=== PATIENT | female | born 1955 | race Caucasian/White ===

== ENCOUNTER → 2019-12-01 13:20 | Outpatient (CLI) | payer OTHER, SELFPAY ==
[2019-12-01 14:13] LABS: D Dimer 205 ng/mL (<230)
== END ==
PROVIDERS: PCP Internal Medicine; Referring Provider Internal Medicine; Visit Provider Internal Medicine
DX: R06.02 Shortness of breath (principal); Z82.49 Family history of ischemic heart disease and other diseases of the circulatory system
CPT/HCPCS: 36415; 85379

== ENCOUNTER → 2019-12-17 12:43 | Outpatient (CLI) | payer OTHER, SELFPAY ==
[2019-12-17 14:10] LABS: NT-proBNP (BNP-Adult 18+) 58 pg/mL (<125)
== END ==
PROVIDERS: PCP Internal Medicine; Referring Provider Internal Medicine; Visit Provider Internal Medicine
DX: I10 Essential (primary) hypertension (principal)
CPT/HCPCS: 36415; 83880

== ENCOUNTER → 2020-07-26 14:42 | Outpatient (ROUT) | payer OTHER, SELFPAY ==
[2020-07-26 15:11] LABS: Alanine Aminotransferase 24 IU/L (<35); Albumin 4.2 g/dL (3.5-5.0); Albumin Globulin Ratio 1.4 (1.0-2.8); Alkaline Phosphatase 83 U/L (38-126); Aspartate Aminotransferase 32 IU/L (14-36); BUN Creatinine Ratio 29.6 (6-22); Bilirubin Total 1.2 mg/dL (0.2-1.3); Blood Urea Nitrogen 16 mg/dL (7-17); Calcium 9.9 mg/dL (8.4-10.2); Carbon Dioxide 28 mmol/L (22-32); Chloride 104 mmol/L (98-107); Cholesterol 168 mg/dL (140-199); Estimated Glomerular Filt Rate > 60.0 mL/min (>60); Globulin 2.9 g/dL (1.7-4.1); Glucose 118 mg/dL (80-110); HDL Cholesterol 69 mg/dL (40-60); HEMOLYSIS < 15 (0-50); Hemoglobin A1C% w Est Avg Glu 5.3 % (4.0-6.0); LDL Cholesterol Calculated 75 mg/dL (<100); Potassium 4.8 mmol/L (3.4-5.1); Sodium 138 mmol/L (137-145); Total Protein 7.1 g/dL (6.3-8.2); Triglycerides 119 mg/dL (35-150)
[2020-07-26 15:42] LABS: TSH w/ Reflex to FT4 0.64 uIU/mL (0.47-4.68)
== END ==
PROVIDERS: PCP Internal Medicine
DX: R73.01 Impaired fasting glucose (principal); E78.00 Pure hypercholesterolemia, unspecified; I10 Essential (primary) hypertension; K76.0 Fatty (change of) liver, not elsewhere classified; E03.9 Hypothyroidism, unspecified
CPT/HCPCS: 80053; 80061; 83036; 84443

== ENCOUNTER → 2020-09-29 10:30 | Outpatient (CLI) | payer OTHER, SELFPAY | PROVIDERS: PCP Internal Medicine; Referring Provider Internal Medicine; Visit Provider Internal Medicine | DX: M85.88 Other specified disorders of bone density and structure, other site (principal); Z78.0 Asymptomatic menopausal state; E06.3 Autoimmune thyroiditis; Z82.62 Family history of osteoporosis | CPT/HCPCS: 77080 ==

== ENCOUNTER → 2023-11-13 14:20 | Outpatient (CLI) | payer MEDICARE, SELFPAY ==
--- NOTE | 2023-11-13 15:00 | DI.CT.S_ITS ---
PROCEDURE: CT CHEST WO CON INDICATIONS: Eval pulmonary nodules. F/u ct chest from [facility]. TECHNIQUE: Noncontrast 5 mm thick sections acquired from the pulmonary apices to the posterior costophrenic angles. 1 mm lung window, 5 mm thick coronal and sagittal and 7 mm axial MIP reformats were then acquired. For radiation dose reduction, the following was used: automated exposure control, adjustment of mA and/or kV according to patient size. COMPARISON: Outside Film, CT, CT ANGIOGRAM CARDIAC PULMONARY VEIN MAPPING, 02/07/2022, 12:00. [facility], CT, CT CHEST WITHOUT CONTRAST, 08/22/2023, 15:31. FINDINGS: Image quality: Diagnostic. Lower Neck: No enlarged lymph nodes. Thyroid: No thyroid nodules which require sonographic follow up, per consensus guidelines. Axillae: No enlarged lymph nodes. Chest Wall: Unremarkable. Bones: Unremarkable. Lungs and Pleura: No pneumothorax or pleural effusions. Stable 9 mm atypical pulmonary cyst with a mildly thickened wall (series 3, image 145). 9 mm left lower lobe solid nodule has demonstrated interval growth since 2021, previously measuring 6 mm (series 3, image 165). Remaining pulmonary nodules are stable. Heart: Heart size is normal. No pericardial effusion. Thoracic Vessels: The aorta and pulmonary arteries demonstrate normal size. Mediastinum and Oliva: No enlarged lymph nodes. Esophagus: No wall thickening. No hiatal hernia. Upper Abdomen: Hepatic steatosis. IMPRESSION: Growing 9 mm left lower lobe solid nodule. Recommend PET-CT to exclude malignancy. Atypical pulmonary cyst with a mildly thickened wall in the anterior right upper lobe. Consider pulmonology referral for follow-up, as this lesion should be surveillance annually as the appearance is suspicious for low-grade malignancy. Dictated by: Filiberto Dunn M.D. on 11/13/2023 at 16:42 Approved by: Filiberto Dunn M.D. on 11/13/2023 at 16:49
== END ==
LOC: CT 14:21
PROVIDERS: PCP Student in an Organized Health Care Education/Training Program; Referring Provider Student in an Organized Health Care Education/Training Program; Visit Provider Student in an Organized Health Care Education/Training Program
DX: J98.4 Other disorders of lung (principal); R91.8 Other nonspecific abnormal finding of lung field; K76.0 Fatty (change of) liver, not elsewhere classified
CPT/HCPCS: 71250

== ENCOUNTER → 2024-03-14 16:46 | Outpatient (CLI) | payer MEDICARE, SELFPAY ==
[2024-03-14 17:39] LABS: Influenza A - CEPHEID Flu A NEGATIVE (NEGATIVE); Influenza B - CEPHEID Flu B NEGATIVE (NEGATIVE); Respiratory Syncytial Virus Negative (Negative)
[2024-03-14 18:07] LABS: COVID-19 CEPHEID 4-PLEX PCR Negative (Negative)
== END ==
PROVIDERS: PCP Student in an Organized Health Care Education/Training Program; Referring Provider Physician Assistant; Visit Provider Physician Assistant
DX: R05.1 Acute cough (principal)
CPT/HCPCS: 0241U

== ENCOUNTER 2024-03-14 17:09 | Emergency (ER) | payer MEDICARE, SELFPAY ==
[2024-03-14 17:13] VITALS: BP 126/61; PULSE 70; RESP 18; TEMP 36.9; O2SAT 100; BMI 26.3
--- NOTE | 2024-03-14 17:32 | ED.URI ---
HPI - URI/Sore Throat <Vivian Limon PA-C - Last Filed: 03/14/24 18:56> General Chief Complaint: Upper Respiratory Symptoms Stated Complaint: Poss bronchitis, hx lung cancer Time Seen by Provider: 03/14/24 17:32 Source: patient Mode of arrival: Ambulatory History of Present Illness HPI Narrative: Ms. Sharpe is a very pleasant 68-year-old female with a past medical history of hypertension, hyperlipidemia, Larisa's thyroiditis, current left lower lobe stage I lung cancer who presents to the emergency department for cough x6 days. Patient reports on Saturday she developed a frequent dry cough. Today the patient expressed some greenish phlegm with some blood tinge to it as well which prompted her going to the walk-in clinic for further evaluation. She was ordered an outpatient chest x-ray of the walk-in clinic however when she came to the hospital for the imaging radiology was closed and she was directed to the ED to have chest x-ray. Patient reports she feels fatigued and under the weather from the frequent coughing and some chest wall discomfort with aggressive cough but otherwise she has no other symptoms. She denies fevers, chills, sore throat, ear pain, chest pain, shortness of breath abdominal pain, nausea, vomiting, diarrhea, dysuria. Patient reports that she has long COVID x 15 months and she has had a very mild cough since then however the cough that started on Saturday is much more aggressive and different. She is plans to start radiation therapy for her stage I lung cancer in the coming months. Drinks about 1 glass of wine per night, no history of smoking, no drug use. Related Data Home Medications Medication Instructions Recorded Confirmed atenolol 25 mg tablet 25 mg PO BID 10/03/23 10/03/23 atorvastatin 40 mg tablet 40 mg PO BEDTIME 10/03/23 10/03/23 diazepam 5 mg tablet 5 mg PO BEDTIME PRN 10/03/23 10/03/23 valsartan 80 mg tablet 80 mg PO DAILY 10/03/23 10/03/23 levothyroxine 75 mcg tablet 75 mcg PO DAILY 03/14/24 03/14/24 metformin 500 mg tablet,extended 500 mg PO DAILY diabetes mellitus 03/14/24 03/14/24 release 24 hr Allergies Allergy/AdvReac Type Severity Reaction Status Date / Time iodine AdvReac Intermediate Hives Verified 03/14/24 17:17 Review of Systems <Vivian Limon PA-C - Last Filed: 03/14/24 18:56> Review of Systems ROS Unobtainable: All systems reviewed & are unremarkable except as noted in HPI and below Patient History <Vivian Limon PA-C - Last Filed: 03/14/24 18:56> Medical History Pulmonary nodules Social History Smoking Status: Never smoker Smoking Status: Never smoker Exam <Vivian Limon PA-C - Last Filed: 03/14/24 18:56> Narrative Exam Narrative: GENERAL: 68 year old patient appears stated age. Well-developed patient, in no acute distress. HEAD: Atraumatic. Normocephalic. ENT: Nose without bleeding, purulent drainage. Throat without erythema, tonsillar hypertrophy or exudate. Airway patent. Hearing imparied. NECK: Trachea midline. Cervical ROM intact. CARDIOVASCULAR: Regular rate and rhythm. [employer] on left chest wall. RESPIRATORY: ?Nonlabored respirations. ?Speaking in clear, full sentences. ?Clear to auscultation. Breath sounds equal bilaterally. No wheezes, rales, or rhonchi. ? EXTREMITIES: No edema or joint tenderness. BACK: Nontender without deformity or crepitance. No flank tenderness. NEURO: AOx3. ?Clear speech. ?Moves all 4 extremities appropriately. Steady gait. SKIN: No rash or erythema of visible areas Initial Vital Signs Initial Vital Signs: Vital Signs Temperature 98.4 F 03/14/24 17:13 Pulse Rate 70 03/14/24 17:13 Respiratory Rate 18 03/14/24 17:13 Blood Pressure 126/61 03/14/24 17:13 Pulse Oximetry 100 03/14/24 17:13 Oxygen Delivery Method Room Air 03/14/24 17:13 <Suzie Trivedi MD - Last Filed: 03/14/24 19:13> Initial Vital Signs Initial Vital Signs: Vital Signs Temperature 98.4 F 03/14/24 17:13 Pulse Rate 70 03/14/24 17:13 Respiratory Rate 18 03/14/24 17:13 Blood Pressure 126/61 01/18/25 17:13 Pulse Oximetry 100 03/14/24 17:13 Oxygen Delivery Method Room Air 03/14/24 17:13 Course <Vivian Limon PA-C - Last Filed: 03/14/24 18:56> Orders Ordered: ED Orders 03/14/24 17:50 XR chest 2V Stat Discontinued Medications Benzonatate (Benzonatate 100 Mg Capsule) 100 mg PO NOW ONE Stop: 03/14/24 18:51 Last Admin: 03/14/24 18:56 Dose: 100 mg Documented By: GW Vital Signs Vital signs: Vital Signs - 8 hr 03/14/24 17:13 Temperature 98.4 F Pulse Rate 70 Respiratory Rate 18 Blood Pressure 126/61 Pulse Oximetry 100 Oxygen Delivery Method Room Air <Suzie Trivedi MD - Last Filed: 03/14/24 19:13> Orders Ordered: ED Orders 03/14/24 17:50 XR chest 2V Stat Discontinued Medications Benzonatate (Benzonatate 100 Mg Capsule) 100 mg PO NOW ONE Stop: 03/14/24 18:51 Last Admin: 03/14/24 18:56 Dose: 100 mg Documented By: GW Vital Signs Vital signs: Vital Signs - 8 hr 03/14/24 17:13 Temperature 98.4 F Pulse Rate 70 Respiratory Rate 18 Blood Pressure 126/61 Pulse Oximetry 100 Oxygen Delivery Method Room Air MDM - URI/Sore Throat <Vivian Limon PA-C - Last Filed: 03/14/24 18:56> Medical Records Attestation: I reviewed the patient's medical records. Imaging Data Chest x-ray: Radiologist's Impression: PROCEDURE: XR CHEST 2V INDICATIONS: cough x 6 days, productive, current LLL lung Ca TECHNIQUE: 2 views of the chest were acquired. COMPARISON: Multiple priors, the most recent PET-CT dated 12/04/2023.. FINDINGS: Surgical changes and devices: None. Lungs and pleura: Lungs are clear. No pleural effusions or pneumothorax. Mediastinum: Mediastinal contours are normal. Heart size is normal. Bones and chest wall: No suspicious bony abnormalities. Soft tissues appear unremarkable. IMPRESSION: No acute cardiopulmonary abnormality is seen. [facility] Narrative Medical decision making narrative: 68-year-old female with a past medical history of hypertension, hyperlipidemia, current left lower lobe stage I lung cancer who presents to the emergency department for cough x6 days. Differential diagnosis includes but is not limited to bronchitis, viral syndrome, lung cancer, pneumonia, etc. On exam the patient is in no acute distress, nontoxic-appearing, all vital signs within normal limits with an O2 saturation of 100% on room air. A flu/COVID/RSV swab was obtained at the walk-in clinic and is pending. On physical exam patient is in no respiratory distress, speaking in clear full sentences, no wheezing or abnormal sounds on lung exam. We will proceed with a two-view chest x-ray to rule out pneumonia or other abnormality. Chest x-ray reveals no acute cardiopulmonary abnormality. Viral swab negative for flu, COVID, RSV. Patient's symptoms most likely related to viral bronchitis. Both patient and myself were contacted by the walk-in clinic KATIE Larsen as there was misunderstanding, patient had an outpatient chest x-ray ordered and was not prompted to come to the emergency room however because outpatient radiology was closed at the time the patient presented to the hospital she was redirected to the emergency department. Patient has Mucinex and Tessalon Perles prescribed by walk-in clinic provider, 1st dose of Tessalon Perles was given in the ED as patient's pharmacy is closed. Advised patient to follow up with PCP, supportive care, strict ER return precautions discussed. Patient verbalized understanding of all information is agreeable with the plan. She is stable for discharge home. Discharge Plan Departure Patient Disposition: Home Clinical Impression: Acute bronchitis, viral Instructions: DI for Acute Bronchitis Activity Restrictions/Additional Instructions: Dear Fermín Annemarie, Today your chest x-ray revealed no acute abnormalities including no pneumonia. Your symptoms are most consistent with viral bronchitis. Please rest, hydrate, use warm tea with honey, and use Mucinex and Tessalon Perles as prescribed by the walk-in clinic provider. If you develop chest pain, difficulty breathing, persistent fevers, or any other concerns please return to the ER. Please follow up with your primary care doctor within the next 2-3 days for ER follow-up. (If you do not have a PCP you can call [phone]. ?to schedule an appointment with an [facility] Primary Care Provider) IF YOU DEVELOP ANY NEW OR WORSENING SYMPTOMS, RETURN TO THE ER! Please read the attached instructions, they highlight more specific treatments and interventions for you at home. Thank you for letting me participate in your care, Vivian Limon PA-C Prescriptions: No Action metformin 500 mg tablet extended release 24 hr 500 mg PO DAILY levothyroxine 75 mcg tablet 75 mcg PO DAILY atenolol 25 mg tablet 25 mg PO BID atorvastatin 40 mg tablet 40 mg PO BEDTIME valsartan 80 mg tablet 80 mg PO DAILY diazepam 5 mg tablet 5 mg PO BEDTIME PRN Referrals: Jyoti Dominguez PA-C [Primary Care Provider] - Stand Alone Forms: Patient Portal/API/Survey ED Sign-out <Suzie Trivedi MD - Last Filed: 03/14/24 19:13> Cosign ED Attending Cosignature Attestation: I DID NOT SEE THIS PATIENT. I WAS AVAILABLE ALL TIMES FOR CONSULTATION.
--- NOTE | 2024-03-14 17:50 | DI.RAD.S_ITS ---
PROCEDURE: XR CHEST 2V INDICATIONS: cough x 6 days, productive, current LLL lung Ca TECHNIQUE: 2 views of the chest were acquired. COMPARISON: Multiple priors, the most recent PET-CT dated 12/04/2023.. FINDINGS: Surgical changes and devices: None. Lungs and pleura: Lungs are clear. No pleural effusions or pneumothorax. Mediastinum: Mediastinal contours are normal. Heart size is normal. Bones and chest wall: No suspicious bony abnormalities. Soft tissues appear unremarkable. IMPRESSION: No acute cardiopulmonary abnormality is seen. Dictated by: Tawanna Finn M.D. on 03/14/2024 at 17:14 Approved by: Tawanna Finn M.D. on 03/14/2024 at 17:17
[2024-03-14] MEDS: BENZONATATE 100 MG CAPSULE PO (18:56)
== END 2024-03-14 19:01 | disposition home or self-care (01) ==
PROVIDERS: Emergency Provider Physician Assistant; PCP Student in an Organized Health Care Education/Training Program
DX: J20.8 Acute bronchitis due to other specified organisms (principal); C34.32 Malignant neoplasm of lower lobe, left bronchus or lung; I10 Essential (primary) hypertension; E78.5 Hyperlipidemia, unspecified; R05.1 Acute cough
CPT/HCPCS: 0241U; 71046; 99283

== ENCOUNTER 2024-11-12 10:20 | Emergency (ER) | payer MEDICARE, SELFPAY ==
[2024-11-12] VITALS (14 sets, daily range): BP systolic 171–209; BP diastolic 70–81; PULSE 59–68; RESP 12–24; O2SAT 98–100; BMI 26.6
--- NOTE | 2024-11-12 10:48 | ED_ITS ---
HPI - Abdominal Pain General Chief Complaint: Abdominal Pain Stated Complaint: Left side pain. Time Seen by Provider: 11/12/24 10:28 Source: patient Mode of arrival: Ambulatory History of Present Illness HPI narrative: 69-year-old female history of hysterectomy, stage I lung cancer, hypertension, dyslipidemia, presents with left-sided chest, abdominal pain that lasted for 30 minutes and went away on its own. Patient denies fever, chills, body aches, cough, runny nose, sore throat, active chest pain, dyspnea on exertion, leg pain, leg swelling, hematuria, rectal bleeding, nausea, vomiting, diarrhea. Other than what is stated 14 point review of system is negative. Related Data Home Medications ?Medication ?Instructions ?Recorded ?Confirmed atenolol 25 mg tablet 25 mg PO BID 10/03/23 atorvastatin 40 mg tablet 40 mg PO BEDTIME 10/03/23 diazepam 5 mg tablet 5 mg PO BEDTIME PRN 10/03/23 10/03/23 valsartan 80 mg tablet 80 mg PO DAILY 10/03/2310/18 levothyroxine 75 mcg tablet 75 mcg PO DAILY 03/14/24 0 03/14/24 metformin 500 mg tablet,extended 500 mg PO DAILY diabe patrick mellitus 03/14/24 03/14/24 release 24 hr Previous Rx's ?Medication ?Instructions ?Recorded benzonatate 200 mg capsule 200 mg PO TID PRN cough #30 caps 03/14/24 guaifenesin 1,200 mg tablet, 1,200 mg PO Q12H #30 tabs 03/14/24 extended release 12 hr Allergies Allergy/AdvReac Type Severity Reaction Status Date / Time iodine AdvReac Intermediate Hives Verified 11/12/24 10:30 Review of Systems Review of Systems ROS Unobtainable: All systems reviewed & are unremarkable except as noted in HPI and below Patient History Medical History Pulmonary nodules Exam Narrative Exam Narrative: GENERAL: [69] year old patient appears stated age. Well-developed patient, in mild distress. HEAD: Atraumatic. Normocephalic. EYES: Pupils equal round and reactive. Extraocular motions intact. No scleral icterus. No injection or drainage. ENT: Nose without bleeding, purulent drainage. Throat without erythema, tonsillar hypertrophy or exudate. Airway patent. NECK: Trachea midline. Non tender CARDIOVASCULAR: Regular rate and rhythm without murmurs, gallops, or rubs. RESPIRATORY: Clear to auscultation. Breath sounds equal bilaterally. No wheezes, rales, or rhonchi. GASTROINTESTINAL: Abdomen soft, non-tender, nondistended. EXTREMITIES: No edema or joint tenderness. BACK: Nontender without deformity or crepitance. No flank tenderness. NEURO: AOx3. SKIN: No rash or erythema of visible areas Initial Vital Signs Initial Vital Signs: Vital Signs Pulse Rate 68 11/12/24 10:24 Pulse Oximetry 100 11/12/24 10:24 Course Orders Ordered: ED Orders 11/12/24 10:48 CT abdomen pelvis w con Stat CT angio chest PE protocol Stat EKG-12 Lead Stat 11/12/24 11:55 Complete Blood Count AUTO DIFF Stat Comprehensive Metabolic Panel Stat Lipase Stat Troponin & CK Cardiac Panel Stat Discontinued Medications Diphenhydramine HCl (Diphenhydramine 50 Mg/Ml Vial) 50 mg IV NOW ONE Stop: 11/12/24 12:32 Last Admin: 11/12/24 12:38 Dose: 50 mg Documented By: VASQUEZ Lactated Ringer's (Lactated Ringers) 1,000 mls @ 1,000 mls/hr IV BOLUS ONE Stop: 11/12/24 11:47 Last Infusion: 11/12/24 12:47 Dose: Infused Documented By: Admin: 11/12/24 11:59 Dose: 1,000 mls/hr Documented By: VASQUEZ Methylprednisolone (Methylprednisolone Succ 125 Mg/2 Ml Vial) 125 mg IV NOW ONE Stop: 11/12/24 12:32 Last Admin: 11/12/24 12:38 Dose: 125 mg Documented By: VASQUEZ Vital Signs Vital signs: Vital Signs - 8 hr 11/12/24 10:24 11/12/24 10:25 11/12/24 10:25 Pulse Rate 68 68 Respiratory Rate Blood Pressure 182/76 H Pulse Oximetry 100 100 Oxygen Delivery Method 11/12/24 10:30 11/12/24 10:30 11/12/24 10:30 Pulse Rate 61 61 Respiratory Rate 16 12 Blood Pressure 173/75 H 173/75 H Pulse Oximetry 99 100 Oxygen Delivery Method Room Air 11/12/24 11:00 11/12/24 11:00 11/12/24 11:30 Pulse Rate 59 L 59 L Respiratory Rate 12 12 Blood Pressure 181/72 H Pulse Oximetry 98 98 Oxygen Delivery Method 11/12/24 11:31 11/12/24 11:31 11/12/24 12:00 Pulse Rate 61 59 L Respiratory Rate 16 24 Blood Pressure 173/70 H Pulse Oximetry 98 100 Oxygen Delivery Method 11/12/24 12:00 11/12/24 12:30 11/12/24 12:30 Pulse Rate 61 Respiratory Rate 12 Blood Pressure 178/77 H 209/81 H Pulse Oximetry 100 Oxygen Delivery Method 11/12/24 13:25 11/12/24 13:26 11/12/24 13:26 Pulse Rate 67 66 Respiratory Rate 18 Blood Pressure 174/71 H Pulse Oximetry 100 100 Oxygen Delivery Method MDM - Abdominal Pain Lab Data 11/12/24 11:55 11/12/24 11:55 Labs: Lab Results 11/12/24 Range/Units 11:55 WBC 6.0 (4.5-11.0) X10^3/uL RBC 4.12 (4.0-5.2) X10^6/uL Hgb 12.8 (12.0-16.0) g/dL Hct 36.8 (36-46) % MCV 89.3 (80-100) fL MCH 31.1 (26-34) PG MCHC 34.8 (30-36) % RDW 12.6 (11.6-14.8) % Plt Count 203 (150-400) X10^3/uL Neut % (Auto) 74.0 (50-75) % Lymph % (Auto) 18.2 L (25-40) % [place] % (Auto) 6.4 (3-14) % Eos % (Auto) 1.0 L (2-4) % Baso % (Auto) 0.4 (0-2) % Neut # (Auto) 4500 (2796-7317) /uL Lymph # (Auto) 1100 (6774-2996) /uL [place] # (Auto) 400 (0-900) /uL Eos # (Auto) 100 (0-450) /uL Baso # (Auto) 0 (0-100) /uL Sodium 137 (137-145) mmol/L Potassium 4.2 (3.4-5.1) mmol/L Chloride 103 (98-107) mmol/L Carbon Dioxide 28 (22-32) mmol/L BUN 16 (7-17) mg/dL Creatinine 0.60 (0.52-1.04) mg/dL Estimated GFR > 60 (>60) mL/min BUN/Creatinine Ratio 26.7 H (6-22) Glucose 112 H (70-99) mg/dL Calcium 9.4 (8.4-10.2) mg/dL Total Bilirubin 1.4 H (0.2-1.3) mg/dL AST 32 (14-36) IU/L ALT 27 (<35) IU/L Alkaline Phosphatase 89 (38-126) U/L Total Creatine Kinase 43 (30-135) U/L Troponin I < 0.012 (0.01-0.034) ng/mL Total Protein 7.7 (6.3-8.2) g/dL Albumin 4.5 (3.5-5.0) g/dL Globulin 3.2 (1.7-4.1) g/dL Albumin/Globulin Ratio 1.4 (1.0-2.8) Lipase 47 (23-300) U/L Point of care testing: Urine Dip Bedside Urine Glucose Negative Bedside Urine Bilirubin - Negative Bedside Urine Ketone - Negative Urine Specific [place] 1.005 Bedside Urine Occult Blood - Negative Bedside Urine pH 6.5 Bedside Urine Protein - Negative Bedside Urine Urobilinogen - Negative Bedside Urine Nitrite - Negative Bedside Urine Leukocytes - Negative Esterase Imaging Data CT scan - chest: Radiologist's Impression: [place] [address] CT Scan Report Signed Patient: Laura Sharpe MR#: [id number] : 1955 Acct:[id number] Age/Sex: 69 / F Date of Service: 11/12/24 Loc: ED Accession Number: [id number] Procedure: CT angio chest PE protocol Ordering Provider: Erick Pastrana D.O. PROCEDURE: CT ANGIO CHEST PE PROTOCOL INDICATIONS: lung ca chest pain TECHNIQUE: After the administration of intravenous contrast, 2 mm thick sections acquired from the pulmonary apices to the posterior costophrenic angles. 3-dimensional maximum intensity projection (MIP) coronal and sagittal reformats were then acquired through the thorax. For radiation dose reduction, the following was used: automated exposure control, adjustment of mA and/or kV according to patient size. COMPARISON: [facility], MR, MR ABDOMEN WITH/WITHOUT CONTRAST, 10/01/2023, 9:41. [facility], CT, CT CHEST WO CON, 11/13/2023, 14:27. FINDINGS: Image quality: Suboptimal contrast bolus timing which degrades evaluation of the segmental to subsegmental pulmonary arteries. Pulmonary arteries: No central filling defect within the central pulmonary arteries. Lower Neck: No enlarged lymph nodes. Thyroid: No thyroid nodules which require sonographic follow up, per consensus guidelines. Axillae: No enlarged lymph nodes. Chest Wall: Unremarkable. Bones: Unremarkable. Lungs and Pleura: No pneumothorax or pleural effusions. Redemonstrated lateral left lower lobe 9 cm solid pulmonary nodule, previously FDG avid and concerning for primary lung malignancy (5/173). Similar atypical pulmonary cyst in the right middle lobe. Increased size of a 7 mm pulmonary nodule in the lateral basilar segment of the left lower lobe (5/203), previously 3 mm. This is concerning for a satellite nodule. Increased size of a a 9 mm solid pulmonary nodule in the medial basilar segment of the right lower lobe (2/201), previously 5 mm. Similar appearance of the a subpleural nodule along the right minor fissure Heart: Heart size is normal. No pericardial effusion. Thoracic Vessels: No aortic aneurysm. Mediastinum and [place]: No enlarged lymph nodes. Esophagus: No wall thickening. No hiatal hernia. Upper Abdomen: Increased size of a 1.4 cm hypoattenuating nodule in the caudate lobe (4/148), previously 0.8 cm. This was previously characterized as focal fatty deposition on prior liver MRI and may correspond to increased fat deposition. IMPRESSION: 1. No central pulmonary embolus. 2. Similar appearance of a 9 mm solid pulmonary nodule concerning for primary lung malignancy, this nodule was previously FDG avid on 12/04/2023. 3. Increased size of 7 mm pulmonary nodule in the left lower lobe concerning for a satellite node and local metastasis. 4. Increased size of a 9 mm solid pulmonary nodule in the right lower lobe may represent a second primary versus less likely metastatic disease. CT scan - abdomen/pelvis: Radiologist's Impression: [address] [address] [address] Scan Report Signed Patient: Laura Sharpe MR#: [id number] : 1955 Acct:[id number] Age/Sex: 69 / F Date of Service: 11/12/24 Loc: ED Accession Number: [id number] Procedure: CT abdomen pelvis w con Ordering Provider: Erick Pastrana D.O. PROCEDURE: CT ABDOMEN PELVIS W CON INDICATIONS: epigastric LUQ pain TECHNIQUE: After the administration of intravenous contrast, axial sections acquired from the lung bases to the pubic symphysis. Coronal and sagittal reformats were performed. For radiation dose reduction, the following was used: automated exposure control, adjustment of mA and/or kV according to patient size. COMPARISON: [facility], MR, MR ABDOMEN WITH/WITHOUT CONTRAST, 10/01/2023, 9:41. FINDINGS: Image quality: Diagnostic. Lower Chest: Please see simultaneously performed but separately dictated CT chest PE protocol for further evaluation of the findings in the inferior thorax.. ABDOMEN: Liver: Diffuse hepatic steatosis with increased prominence of areas, previously characterized as more focal fatty deposition within segments 8, 4B, and 3. Gallbladder: No radiopaque gallstones or wall thickening. Biliary ducts: No biliary dilation. Pancreas: No ductal dilation. Spleen: Size is within normal limits. Adrenal Glands: No adrenal nodules. Kidneys and Ureters: No hydronephrosis. No solid mass. No complex renal cystic lesion which requires follow up. Stomach and Bowel: Normal colonic caliber, without significant wall thickening. Peritoneum: No abnormal intraperitoneal fluid. No free air. Ventral Wall: No significant ventral hernia. Abdominal Nodes: No retroperitoneal or mesenteric adenopathy by size criteria. Vessels: Aorta and inferior vena cava are normal in size. PELVIS: Pelvic Organs: Unremarkable. Bladder: No bladder wall thickening, accounting for underdistention. Pelvic Nodes: No enlarged lymph nodes. Miscellaneous: No inguinal hernias are seen. Bones: No aggressive osseous abnormality. Moderate isthmic spondylolisthesis of L5 on S1. No lytic or blastic osseous lesion. IMPRESSION: No focal abnormality in the left upper quadrant to correlate with left upper quadrant abdominal pain. ECG Data Interpretation: Sinus Michael HR 57 MT 180 QRS [address]-t wave change No previous EKG to compare MDM Narrative Medical decision making narrative: All lab work, vital signs, nurse triage note, medication list, previous ER visits, and all imaging studies reviewed. CTA chest showed no PE. Similar appearance 9 mm solid pulmonary nodule concerning for primary lung cancer previously seen on 12/04/2023. Increased size of 7 mm pulmonary nodule in the left lower lobe concerning for satellite nodule and local metastasis. Increased size of 9 mm solid nodule in the right lower lobe may represent secondary versus primary versus less likely metastatic disease. WBC 6 glucose 112 rest CMP is normal except T bili 1.[address] abdomen and pelvis showed no focal abnormality in left upper quadrant to correlate with left upper quadrant abdominal pain. Patient will follow up with [facility] next [place] appointment. Differential diagnosis pneumonia, lung cancer with Mets, obstruction, constipation, pancreatitis, kidney stone, kidney infection. Discharge Plan Departure Patient Disposition: Home Clinical Impression: Lung cancer, Left upper quadrant abdominal pain Instructions: DI for Lung Cancer Activity Restrictions/Additional Instructions: Return with new or worsening symptoms. Follow up with appointment next Saturday at [facility]. Prescriptions: No Action metformin 500 mg tablet extended release 24 hr 500 mg PO DAILY levothyroxine 75 mcg tablet 75 mcg PO DAILY benzonatate 200 mg capsule 200 mg PO TID PRN (Reason: cough) Qty: 30 0RF guaifenesin 1,200 mg tablet extended release 12hr 1,200 mg PO Q12H Qty: 30 0RF atenolol 25 mg tablet 25 mg PO BID atorvastatin 40 mg tablet 40 mg PO BEDTIME valsartan 80 mg tablet 80 mg PO DAILY diazepam 5 mg tablet 5 mg PO BEDTIME PRN Referrals: Jyoti Dominguez PA-C [Primary Care Provider, Medical] Stand Alone Forms: Patient Portal/API
[2024-11-12] MEDS: LACTATED RINGERS 1,000 ML 1000 ML IV (11:59)
--- NOTE | 2024-11-12 12:03 | EKG_ITS ---
[address] [address] Test Date: 2024-11-12 Pat Name: Laura Sharpe Department: Located Within [facility] Room: Gender: Female [employer]: : 1955 Requested By: Order Number: [id number] Reading MD: Erick Hernandez MD Measurements Intervals [place] Rate: 57 P: 40 MA: 180 QRS: 31 QRSD: 82 T: 62 QT: 456 QTc: 443 Interpretive Statements Sinus bradycardia Electronically Signed On 11-12-2024 13:38:39 PDT by Erick Hernandez MD
[2024-11-12 12:04] LABS: Add Manual Diff / Slide Review NO; Hematocrit 36.8 % (36-46); Hemoglobin 12.8 g/dL (12.0-16.0); Lymphocytes Absolute Auto 1100 /uL (1100-4500); Mean Corpuscular HGB Conc 34.8 % (30-36); Mean Corpuscular Hemoglobin 31.1 PG (26-34); Mean Corpuscular Volume 89.3 fL (80-100); Platelet Count 203 X10^3/uL (150-400)
[2024-11-12 12:16] LABS: Alanine Aminotransferase 27 IU/L (<35); Albumin 4.5 g/dL (3.5-5.0); Albumin Globulin Ratio 1.4 (1.0-2.8); Alkaline Phosphatase 89 U/L (38-126); Blood Urea Nitrogen 16 mg/dL (7-17); Calcium 9.4 mg/dL (8.4-10.2); Carbon Dioxide 28 mmol/L (22-32); Chloride 103 mmol/L (98-107); Creatine Kinase 43 U/L (30-135); Estimated Glomerular Filt Rate > 60 mL/min (>60); Globulin 3.2 g/dL (1.7-4.1); Glucose 112 mg/dL (70-99); HEMOLYSIS < 15 (0-50); Lipase 47 U/L (23-300); Potassium 4.2 mmol/L (3.4-5.1); Sodium 137 mmol/L (137-145); Total Protein 7.7 g/dL (6.3-8.2)
[2024-11-12 12:28] LABS: Troponin I < 0.012 ng/mL (0.01-0.034)
[2024-11-12] MEDS: diphenhydrAMINE 50 MG/ML VIAL IV (12:38)
[2024-11-12] MEDS: methylPREDNISolone succ 125 MG/2 ML VIAL IV (12:38)
== END 2024-11-12 14:58 | disposition home or self-care (01) ==
PROVIDERS: Emergency Provider Family Medicine; PCP Student in an Organized Health Care Education/Training Program
DX: R10.12 Left upper quadrant pain (principal); C34.90 Malignant neoplasm of unspecified part of unspecified bronchus or lung
CPT/HCPCS: 36415; 71275; 74177; 80053; 81003; 82550; 83690; 84484; 85025; 93005; 96361; 96374; 96375; 99284; J1200; J2919; Q9967

== ENCOUNTER → 2024-11-23 09:51 | Outpatient (CLI) | payer MEDICARE, SELFPAY ==
--- NOTE | 2024-11-23 09:58 | DI.US.S_ITS ---
PROCEDURE: US SOFT TISSUE HEAD AND NECK INDICATIONS: EVAL POSSIBLE SIDE LYMPHADENOPATHY TECHNIQUE: Real-time scanning was performed of the neck region of interest, with image documentation. COMPARISON: None. FINDINGS: Grayscale color Doppler images of the area of concern involving the left neck demonstrates a normal appearing cervical chain lymph node measuring 0.6 x 0.3 x 0.5 cm in size. There is normal reniform morphology within uniform cortex and central fatty hilum. Otherwise, no suspicious mass or abnormal fluid collections identified. IMPRESSION: No sonographic abnormalities identified in the area of concern in the left neck. Incidental note of normal cervical chain lymph node. Dictated by: Emir Lopez M.D. on 11/23/2024 at 15:12 Approved by: Emir Lopez M.D. on 11/23/2024 at 15:17
== END ==
PROVIDERS: PCP Physician Assistant; Referring Provider Physician Assistant; Visit Provider Physician Assistant
DX: R59.1 Generalized enlarged lymph nodes (principal)
CPT/HCPCS: 76536

== ENCOUNTER → 2025-01-19 09:30 | Outpatient (CLI) | payer MEDICARE, SELFPAY ==
--- NOTE | 2025-01-19 09:32 | DI.CT.S_ITS ---
PROCEDURE: CT HEAD/BRAIN WO CON INDICATIONS: sudden hearing loss TECHNIQUE: Noncontrast 4.5 mm thick angled axial sections acquired from the foramen magnum to the vertex, with coronal and sagittal reformats. For radiation dose reduction, the following was used: automated exposure control, adjustment of mA and/or kV according to patient size. COMPARISON: None. FINDINGS: Image quality: Diagnostic. CSF spaces: Basal cisterns are patent. No extra-axial fluid collections. Ventricles are normal in size and shape. Brain: No midline shift. No intracranial mass effect or hemorrhage. Li- white matter interface is normal. Skull and face: Calvarium and visualized facial bones are intact, without suspicious lesions. Sinuses: Visualized sinuses and mastoids are clear. IMPRESSION: No acute intracranial disease process. Dictated by: Kamilah Zhao MD, PhD on 01/19/2025 at 10:16 Approved by: Kamilah Zhao MD, PhD on 01/19/2025 at 10:19
== END ==
LOC: CT 09:31
PROVIDERS: PCP Physician Assistant; Referring Provider Physician Assistant; Visit Provider Family Medicine
DX: R42 Dizziness and giddiness (principal); H91.21 Sudden idiopathic hearing loss, right ear
CPT/HCPCS: 70450